=== PATIENT | female | born 1955 | race Caucasian/White ===

== ENCOUNTER 2021-01-16 13:02 | Inpatient (IN) | payer OTHER, MEDICARE ==
[~2021-01-16] VITALS: Ht 170.2 cm; Wt 68.0 kg
[2021-01-16] MEDS ORDERED: HYDROCODONE/APAP 5MG-325MG TAB PO ONE (14:00)
[2021-01-16] MEDS ORDERED: ONDANSETRON HCL INJ 2MG/ML 2ML 2 MG/ML VIAL IV STA (14:52)
[2021-01-16] MEDS ORDERED: SODIUM CHLORIDE 0.9% 1000ML 1,000 ML IV STA (14:52)
[2021-01-16] MEDS ORDERED: MORPHINE SULFATE INJ 4 MG/ML INJ 1ML IV STA (14:52)
[2021-01-16] MEDS ORDERED: MORPHINE SULFATE INJ 4 MG/ML INJ 1ML IV PRN (16:15)
[2021-01-16] MEDS: SODIUM CHLORIDE 0.9% 1000ML 1,000 ML IV SCH ×2 (16:15→23:36)
[2021-01-16] MEDS ORDERED: ONDANSETRON HCL INJ 2MG/ML 2ML 2 MG/ML VIAL IV PRN (16:15)
[2021-01-16 16:16] LABS: BASOPHILS % 0.4 % (0.0-1.0); EOSINOPHILS # (AUTO) 0.1 (0.0-0.4); EOSINOPHILS % 0.9 % (0.0-6.0); HEMATOCRIT 43.2 % (34.2-44.1); HEMOGLOBIN 14.7 g/dL (12.0-16.0); LYMPHOCYTES # (AUTO) 1.1 (1.0-3.2); LYMPHOCYTES % 14.1 % (18.0-39.1); MEAN CORPUSCULAR HEMOGLOBIN 30.2 pg (28-32); MEAN CORPUSCULAR VOLUME 88.9 fL (81-99); MONOCYTES # (AUTO) 0.5 (0.2-0.8); NEUTROPHILS # (AUTO) 6.2 (2.1-6.9); NEUTROPHILS % 78.1 % (38.7-80.0); PLATELET COUNT 205 x10e3/uL (140-360); RED BLOOD COUNT 4.86 x10e6/uL (3.6-5.1); RED CELL DISTRIBUTION WIDTH 13.5 % (11.7-14.4)
[2021-01-16 16:34] LABS: INR 0.85; PROTHROMBIN TIME 12.2 seconds (11.9-14.5)
[2021-01-16 16:35] LABS: PARTIAL THROMBOPLASTIN TIME 28.6 seconds (23.8-35.5)
[2021-01-16 16:38] LABS: ALANINE AMINOTRANSFERASE 24 IU/L (0-55); ALBUMIN 4.2 g/dL (3.5-5.0); ALBUMIN/GLOBULIN RATIO 1.4 (0.8-2.0); ALKALINE PHOSPHATASE 76 IU/L (40-150); ANION GAP 13.3 mmol/L (8-16); BLOOD UREA NITROGEN 11 mg/dL (7-26); BUN/CREATININE RATIO 13 (6-25); CARBON DIOXIDE 32 mmol/L (22-29); CHLORIDE 98 mmol/L (98-107); CREATINE KINASE 44 IU/L (29-168); CREATININE, SERUM 0.88 mg/dL (0.57-1.11); EST GLOMERULAR FILTRATION RATE > 60 ML/MIN (60-); GLUCOSE 78 mg/dL (74-118); MAGNESIUM 2.1 MG/DL (1.3-2.1); POTASSIUM 3.3 mmol/L (3.5-5.1); SODIUM 140 mmol/L (136-145)
[2021-01-16] MEDS ORDERED: CEFAZOLIN SOD 1 GM/NS 50ML 100 ML IV ONE (17:30)
[2021-01-16 21:30] VITALS: BP_SYST 107; BP_SYST 119; BP_DIAS 67; BP_DIAS 72
[2021-01-16 21:35] VITALS: BP 107/67
[2021-01-17] VITALS (8 sets, daily range): BP systolic 102–120; BP diastolic 59–76
[2021-01-17] MEDS ORDERED: ATIVAN0.5 MG PO (00:39)
[2021-01-17] MEDS ORDERED: SYMBICORT 16010.2 GM INH (00:39)
[2021-01-17] MEDS ORDERED: PANTOPRAZOLE SO40 MG PO (00:39)
[2021-01-17] MEDS ORDERED: CELEXA20 MG PO (00:39)
[2021-01-17] MEDS ORDERED: DYRENIUM50 MG PO (00:39)
[2021-01-17] MEDS ORDERED: METHENAMINE HIPP1 GM PO (00:39)
[2021-01-17] MEDS: SODIUM CHLORIDE 0.9% 1000ML 1,000 ML IV SCH ×6 (02:15→22:46)
[2021-01-17] MEDS ORDERED: LORAZEPAM 0.5 MG TAB PO PRN (04:45)
[2021-01-17] MEDS ORDERED: ACETAMINOPHEN 1000 MG/100 ML IV PRN ×2 (05:15→15:30)
[2021-01-17 05:49] LABS: CREATINE KINASE MB 1.1 ng/mL (0-5.0)
[2021-01-17] MEDS: BUDESONIDE/FORMOTEROL 160/4.5MCG INHALER INH SCH (07:54)
[2021-01-17] MEDS ORDERED: CEFAZOLIN SOD 1 GM/NS 50ML 100 ML IV ONE (08:00)
[2021-01-17] MEDS ORDERED: CEFAZOLIN SOD IV ONE (08:00)
[2021-01-17] MEDS ORDERED: SODIUM CHLORIDE 0.9% IV ONE (08:00)
[2021-01-17] MEDS: PANTOPRAZOLE SOD 40 MG TABEC PO SCH ×2 (09:00→18:08)
[2021-01-17] MEDS ORDERED: DEXAMETHASONE SOD PHOS INJ 4 MG/ML VIAL ONE (13:46)
[2021-01-17] MEDS ORDERED: POVIDONE IODINE 0.05% 0.05 % ML PO ONE (13:46)
[2021-01-17] MEDS ORDERED: LIDOCAINE HCL 2% LOCAL INJ 5 ML SDV VIAL INJ ONE (13:46)
[2021-01-17] MEDS ORDERED: EPHEDRINE SULFATE INJ 50 MG/ML VIAL ONE (13:46)
[2021-01-17] MEDS ORDERED: ONDANSETRON HCL INJ 2MG/ML 2ML 2 MG/ML VIAL ONE (13:46)
[2021-01-17] MEDS ORDERED: GLYCOPYRROLATE INJ 0.2 MG/ML VIAL ONE (13:46)
[2021-01-17] MEDS ORDERED: CEFTRIAXONE SOD 1 GM VIAL ONE (13:46)
[2021-01-17] MEDS ORDERED: PROPOFOL IV EMULSION 10 MG/ML 20 ML VIAL ONE (13:46)
[2021-01-17] MEDS ORDERED: SEVOFLURANE INHAL SOLN 250 ML PEN BTL ONE (13:46)
[2021-01-17] MEDS ORDERED: MIDAZOLAM HCL 2 MG/2 ML VIAL ONE (14:09)
[2021-01-17] MEDS ORDERED: FENTANYL CITRATE/PF 100MCG/2 ML INJ ONE (14:09)
[2021-01-17] MEDS ORDERED: HYDROMORPHONE 0.2MG/ML-SOD CHL 30ML PCA SYRINGE IV PRN (15:30)
[2021-01-17] MEDS ORDERED: NALOXONE HCL INJ 0.4 MG/ML AMP IV PRN (15:30)
[2021-01-17] MEDS: FENTANYL CITRATE/PF 100MCG/2 ML INJ ONE (15:36)
[2021-01-17] MEDS ORDERED: HYDROMORPHONE 0.2MG/ML-SOD CHL 30ML PCA SYRINGE IV ONE (16:09)
[2021-01-17 21:07] LABS: CREATINE KINASE MB 2.9 ng/mL (0-5.0)
[2021-01-17] MEDS: CITALOPRAM HYDROBROMIDE 20 MG TAB PO SCH (21:41)
[2021-01-17] MEDS: CLINDAMYCIN PHOS 900MG/ 50ML 50 ML IV SCH (22:46)
[2021-01-18] VITALS (8 sets, daily range): BP systolic 99–121; BP diastolic 55–68
[2021-01-18] MEDS: SODIUM CHLORIDE 0.9% 1000ML 1,000 ML IV SCH ×6 (02:13→20:43)
[2021-01-18 06:18] LABS: HEMATOCRIT 34.6 % (34.2-44.1); HEMOGLOBIN 11.8 g/dL (12.0-16.0)
[2021-01-18] MEDS: CLINDAMYCIN PHOS 900MG/ 50ML 50 ML IV SCH ×2 (06:30→15:06)
[2021-01-18] MEDS: PANTOPRAZOLE SOD 40 MG TABEC PO SCH ×2 (08:45→17:07)
[2021-01-18] MEDS: BUDESONIDE/FORMOTEROL 160/4.5MCG INHALER INH SCH (09:00)
[2021-01-18] MEDS ORDERED: RIVAROXABAN 10 MG TABLET PO SCH (17:00)
[2021-01-18] MEDS: CITALOPRAM HYDROBROMIDE 20 MG TAB PO SCH (21:16)
[2021-01-19 00:31] VITALS: BP 114/54
[2021-01-19] MEDS: SODIUM CHLORIDE 0.9% 1000ML 1,000 ML IV SCH (01:16)
[2021-01-19 04:46] VITALS: BP 111/55
[2021-01-19 05:16] LABS: HEMATOCRIT 33.4 % (34.2-44.1); HEMOGLOBIN 11.2 g/dL (12.0-16.0)
[2021-01-19 08:13] VITALS: BP 115/66
[2021-01-19 08:26] VITALS: BP 115/66
[2021-01-19] MEDS ORDERED: ONDANSETRON HCL 4 MG ORAL DISINTEGRATING TAB PO PRN (08:30)
[2021-01-19] MEDS: PANTOPRAZOLE SOD 40 MG TABEC PO SCH (08:50)
[2021-01-19] MEDS: BUDESONIDE/FORMOTEROL 160/4.5MCG INHALER INH SCH (09:00)
[2021-01-19] MEDS ORDERED: HYDROCODONE/APAP 5MG-325MG TAB PO PRN ×2 (10:45)
[2021-01-19 12:04] VITALS: BP 102/59
[2021-01-19 16:19] VITALS: BP 110/65
== END 2021-01-19 17:40 | DRG 482 ==
LOC: ER 13:34 → ERHOLD 16:18 → MED/SURG 22:23
PROVIDERS: ADMIT Internal Medicine; ATTEND Internal Medicine
PROC: 0QS734Z Reposition Left Upper Femur with Internal Fixation Device, Percutaneous Approach (ICD-10-PCS; principal; 2021-01-17 13:00)
DX: S72.002A Fracture of unspecified part of neck of left femur, initial encounter for closed fracture (principal); K21.9 Gastro-esophageal reflux disease without esophagitis; F41.9 Anxiety disorder, unspecified; Z82.49 Family history of ischemic heart disease and other diseases of the circulatory system; Z88.0 Allergy status to penicillin; Z88.8 Allergy status to other drugs, medicaments and biological substances; I10 Essential (primary) hypertension; E87.6 Hypokalemia; J44.9 Chronic obstructive pulmonary disease, unspecified; W01.0XXA Fall on same level from slipping, tripping and stumbling without subsequent striking against object, initial encounter; Y93.01 Activity, walking, marching and hiking; Y92.018 Other place in single-family (private) house as the place of occurrence of the external cause; Z87.01 Personal history of pneumonia (recurrent); Z85.3 Personal history of malignant neoplasm of breast; D64.9 Anemia, unspecified
CPT/HCPCS: 36415; 51700; 70450; 71045; 72125; 76000; 80053; 82550; 82553; 83735; 84484; 85014; 85018; 85025; 85610; 85730; 86850; 86900; 93005; 93306; 97139; 99284; C1713; J0690; J0696; J1100; J2001; J2250; J2270; J2405; J3010; J7030; U0002